=== PATIENT | female | born 1980 | race Caucasian/White ===

== ENCOUNTER 2020-04-18 19:43 | Inpatient (IN) | payer MEDICAID ==
[~2020-04-18] VITALS: Ht 165.1 cm; Wt 111.1 kg
[2020-04-18 21:31] LABS: CLARITY URINE CLOUDY (CLEAR); COLOR URINE YELLOW (YELLOW); KETONES URINE NEGATIVE (NEGATIVE); LEUKOCYTE ESTERASE URINE 3+ (NEGATIVE); NITRITE URINE NEGATIVE (NEGATIVE); OCCULT BLOOD URINE NEGATIVE (NEGATIVE); PH URINE 6.5 (4.5-8.0); PROTEIN URINE NEGATIVE (NEGATIVE); SPECIFIC GRAVITY URINE 1.009 (1.005-1.030)
[2020-04-18] MEDS: LACTATED RINGERS 1,000 ML IV SCH (21:45)
[2020-04-19] MEDS: AMPICILLIN 2,000 MG in SODIUM CHLORIDE 0.9% 100 ML IV SCH ×5 (00:11→23:44)
[2020-04-19] MEDS: LACTATED RINGERS 1,000 ML IV SCH ×3 (00:12→15:14)
[2020-04-19] MEDS ORDERED: RHO(D) IMMUNE GLOBULIN 300 MCG/SYR IM SCH (08:45)
[2020-04-19 10:26] LABS: BASOPHILS % 0.4 % (0.0-2.0); HEMOGLOBIN. 12.2 g/dL (12.0-16.0); LYMPHOCYTES % 16.6 % (20.0-50.0); MEAN CORPUSCULAR HEMOGLOBIN 32.1 pg (28.0-32.0); MEAN CORPUSCULAR VOLUME 94.8 fL (81.0-99.0); MEAN PLATELET VOLUME 7.8 fl (7.4-10.4); MONOCYTES % 4.5 % (2.0-8.0); NEUTROPHILS % 78.5 % (40.0-76.0); PLATELET 193 x1000/uL (130-400); RED BLOOD CELL COUNT 3.79 mill/uL (4.2-5.4); RED CELL DISTRIBUTION WIDTH 14.2 % (11.6-14.6)
[2020-04-19 10:43] LABS: INR 0.9; PARTIAL THROMBOPLASTIN TIME 34.3 sec (23.4-31.0); PROTHROMBIN TIME 9.8 sec (9.6-11.0)
[2020-04-19 14:34] LABS: HEPATITIS B SURFACE ANTIGEN NEGATIVE
[2020-04-19] MEDS: DEXAMETHASONE 10 MG/ML VIAL IV SCH (15:14)
[2020-04-20] MEDS: DEXAMETHASONE 10 MG/ML VIAL IV SCH ×2 (02:50→09:59)
[2020-04-20] MEDS: AMPICILLIN 2,000 MG in SODIUM CHLORIDE 0.9% 100 ML IV SCH ×4 (06:12→23:42)
[2020-04-20] MEDS: PROMETHAZINE/DEXTROMETHORPHAN 6.25-15MG/5ML BOTTLE 120ML PO PRN ×2 (10:01→14:37)
[2020-04-20 12:41] LABS: CLARITY URINE CLEAR (CLEAR); COLOR URINE YELLOW (YELLOW); KETONES URINE 2+ (NEGATIVE); LEUKOCYTE ESTERASE URINE 2+ (NEGATIVE); NITRITE URINE NEGATIVE (NEGATIVE); OCCULT BLOOD URINE NEGATIVE (NEGATIVE); PH URINE 7.5 (4.5-8.0); PROTEIN URINE NEGATIVE (NEGATIVE); SPECIFIC GRAVITY URINE 1.013 (1.005-1.030)
[2020-04-20 13:33] LABS: CANNABINOID URINE SCREEN NEGATIVE (NEGATIVE); PHENCYCLIDINE URINE SCREEN NEGATIVE (NEGATIVE)
[2020-04-20 13:34] LABS: *AMPHETAMINES SCREEN URINE NEGATIVE (NEGATIVE); *BARBITURATES SCREEN URINE NEGATIVE (NEGATIVE); *BENZODIAZEPINES SCREEN URINE NEGATIVE (NEGATIVE); *COCAINE SCREEN URINE NEGATIVE (NEGATIVE); METHADONE URINE SCREEN NEGATIVE (NEGATIVE); OPIATES URINE SCREEN NEGATIVE (NEGATIVE)
[2020-04-20] MEDS: BENZONATATE 100MG CAPSULE PO PRN (17:38)
[2020-04-20] MEDS: LACTATED RINGERS 1,000 ML IV SCH (18:00)
[2020-04-21] MEDS ORDERED: ENOXAPARIN 30MG/0.3ML SYR SUBCUT SCH
[2020-04-21] MEDS: LACTATED RINGERS 1,000 ML IV SCH ×3 (04:00→21:44)
[2020-04-21] MEDS: AMPICILLIN 2,000 MG in SODIUM CHLORIDE 0.9% 100 ML IV SCH ×4 (05:55→23:58)
[2020-04-21] MEDS: PROMETHAZINE/DEXTROMETHORPHAN 6.25-15MG/5ML BOTTLE 120ML PO PRN ×2 (10:31→18:11)
[2020-04-21] MEDS: DEXAMETHASONE 4MG TABLET PO SCH (10:33)
[2020-04-21 19:59] LABS: BG CARBOXYHEMOGLOBIN 0.2 % (0.5-1.5); BG HCO3 ACT 23.2 mmol/L (22.0-26.0); BG METHEMOGLOBIN 0.3 % (0.0-1.5); BG OXYHEMOGLOBIN 98.5 % (94.0-97.0); BG PCO2 34.2 mmHg (35.0-45.0); BG PO2 153.5 mmHg (75.0-100.0); BG TOTAL HEMOGLOBIN 15.7 g/dL (12.0-18.0); BG VENT MODE MASK - NRB
[2020-04-21] MEDS ORDERED: IOHEXOL-350 100 ML BOTTLE ONE (23:36)
[2020-04-21 23:44] LABS: BASOPHILS % 0.4 % (0.0-2.0); EOSINOPHILS % 0.1 % (0.0-5.0); HEMATOCRIT. 40.4 % (36.0-48.0); HEMOGLOBIN. 13.4 g/dL (12.0-16.0); LYMPHOCYTES % 8.9 % (20.0-50.0); MEAN CORPUSCULAR HEMOGLOBIN 31.5 pg (28.0-32.0); MEAN CORPUSCULAR VOLUME 94.8 fL (81.0-99.0); MONOCYTES % 3.5 % (2.0-8.0); NEUTROPHILS % 87.1 % (40.0-76.0); PLATELET 228 x1000/uL (130-400); RED BLOOD CELL COUNT 4.26 mill/uL (4.2-5.4); RED CELL DISTRIBUTION WIDTH 14.3 % (11.6-14.6)
[2020-04-22] MEDS: AMPICILLIN 2,000 MG in SODIUM CHLORIDE 0.9% 100 ML IV SCH ×3 (06:08→18:00)
[2020-04-22] MEDS: DEXAMETHASONE 4MG TABLET PO SCH (09:58)
[2020-04-22 11:05] LABS: BASOPHILS % 0.2 % (0.0-2.0); EOSINOPHILS % 0.1 % (0.0-5.0); HEMATOCRIT. 38.4 % (36.0-48.0); HEMOGLOBIN. 12.7 g/dL (12.0-16.0); LYMPHOCYTES % 9.9 % (20.0-50.0); MEAN CORPUSCULAR HEMOGLOBIN 31.5 pg (28.0-32.0); MEAN CORPUSCULAR VOLUME 95.2 fL (81.0-99.0); MEAN PLATELET VOLUME 7.6 fl (7.4-10.4); MONOCYTES % 4.4 % (2.0-8.0); NEUTROPHILS % 85.4 % (40.0-76.0); PLATELET 225 x1000/uL (130-400); RED BLOOD CELL COUNT 4.03 mill/uL (4.2-5.4); RED CELL DISTRIBUTION WIDTH 14.5 % (11.6-14.6)
[2020-04-22 11:20] LABS: CHLORIDE 104 mEq/L (98-107)
[2020-04-22 11:21] LABS: CHLORIDE 104 mEq/L (98-107)
[2020-04-22 11:55] LABS: INR 0.9; PARTIAL THROMBOPLASTIN TIME 32.6 sec (23.4-31.0); PROTHROMBIN TIME 9.8 sec (9.6-11.0)
[2020-04-22] MEDS: LACTATED RINGERS 1,000 ML IV SCH ×2 (12:54→23:25)
[2020-04-22] MEDS: PROMETHAZINE/DEXTROMETHORPHAN 6.25-15MG/5ML BOTTLE 120ML PO PRN (12:56)
[2020-04-22] MEDS ORDERED: DEXT 5%/LR + PITOCIN 20UNITS/L 1,000 ML IV SCH ×2 (14:45→16:45)
[2020-04-22 16:18] LABS: BG BASE EXCESS -1.5 mmol/L (-2.0-2.0); BG CARBOXYHEMOGLOBIN 0.3 % (0.5-1.5); BG DEOXYHEMOGLOBIN 0.8 % (0.0-5.0); BG FRACTION INSPIRED OXYGEN 100; BG HCO3 ACT 19.2 mmol/L (22.0-26.0); BG METHEMOGLOBIN 0.3 % (0.0-1.5); BG OXYGEN SATURATION 99.2 % (92.0-98.5); BG OXYHEMOGLOBIN 98.6 % (94.0-97.0); BG PCO2 23.2 mmHg (35.0-45.0); BG PH 7.536 (7.350-7.450); BG SAMPLE SITE RIGHT RADIAL; BG VENT MODE MASK - NRB
[2020-04-22] MEDS ORDERED: BUTORPHANOL TARTRATE 2 MG/ML VIAL IM PRN (19:45)
[2020-04-22] MEDS ORDERED: ROPIVACAINE HCL/PF EPIDURAL 200 ML EPI SCH (23:45)
[2020-04-23] MEDS ORDERED: FENTANYL CITRATE/PF 50MCG/ML 2ML VIAL ONE (00:53)
[2020-04-23] MEDS ORDERED: BUPIVACAINE HCL/PF 0.25% (2.5MG/ML) 10ML ONE (00:54)
[2020-04-23] MEDS: AMPICILLIN 2,000 MG in SODIUM CHLORIDE 0.9% 100 ML IV SCH (01:13)
[2020-04-23] MEDS ORDERED: METHYLERGONOVINE MALEATE 0.2 MG/ML IM ONE (04:45)
[2020-04-23] MEDS ORDERED: CARBOPROST TROMETHAMINE 250 MCG/ML AMPUL IM ONE (04:45)
[2020-04-23 06:00] VITALS: BP 101/70
[2020-04-23] MEDS ORDERED: GLYCERIN/WITCH HAZEL LEAF MEDICATED PAD TOP PRN (06:15)
[2020-04-23] MEDS ORDERED: BENZOCAINE/LANOLIN/ALOE VERA SPRAY TOP PRN (06:15)
[2020-04-23] MEDS ORDERED: BISACODYL 10MG SUPP PR PRN (06:15)
[2020-04-23] MEDS ORDERED: METHYLERGONOVINE MALEATE 0.2 MG/ML IM PRN (06:15)
[2020-04-23] MEDS ORDERED: ACETAMINOPHEN WITH CODEINE 300/30MG TABLET PO PRN ×2 (06:15)
[2020-04-23] MEDS ORDERED: OXYTOCIN 10 UNITS/ML 1ML ONE (06:15)
[2020-04-23] MEDS ORDERED: LANOLIN OINT 7GM TUBE TOP PRN (06:15)
[2020-04-23] MEDS ORDERED: DEXT 5%/LR + PITOCIN 20UNITS/L 1,000 ML IV SCH (06:15)
[2020-04-23 09:00] VITALS: BP 110/74
[2020-04-23] MEDS ORDERED: IPRATROPIUM BROMIDE (0.02%) 0.5MG/2.5ML NEB HHN SCH (09:00)
[2020-04-23] MEDS ORDERED: ALBUTEROL 6.7GM HFA INHALER ORI PRN (11:30)
[2020-04-23] MEDS: PRENATAL VIT/FE FUMARATE/FA TABLET PO SCH (11:53)
[2020-04-23] MEDS: SIMETHICONE 80MG TABLET CHEW PO SCH ×3 (11:54→20:57)
[2020-04-23] MEDS: MAGNESIUM/ALUMINUM HYDROXIDE/SIMETHICONE 30ML UDC PO SCH ×3 (11:54→20:56)
[2020-04-23] MEDS: DEXAMETHASONE 6MG TABLET PO SCH (11:54)
[2020-04-23] MEDS: LACTATED RINGERS 1,000 ML IV SCH (11:56)
[2020-04-23] MEDS ORDERED: ALBUTEROL (0.083%) 2.5MG/3ML NEB HHN SCH (12:00)
[2020-04-23 13:25] VITALS: BP 110/56
[2020-04-23] MEDS ORDERED: ALPRAZOLAM 0.5 MG TABLET PO PRN (17:13)
[2020-04-23] MEDS ORDERED: LORAZEPAM 0.5MG TABLET PO PRN (17:30)
[2020-04-23 20:00] VITALS: BP 100/80
[2020-04-23] MEDS: DOCUSATE SODIUM 100MG CAPSULE PO SCH (20:57)
[2020-04-24] VITALS (9 sets, daily range): BP systolic 87–101; BP diastolic 54–70
[2020-04-24] MEDS: SIMETHICONE 80MG TABLET CHEW PO SCH ×4 (09:36→21:00)
[2020-04-24] MEDS: PRENATAL VIT/FE FUMARATE/FA TABLET PO SCH (09:36)
[2020-04-24] MEDS: DEXAMETHASONE 6MG TABLET PO SCH (09:37)
[2020-04-24] MEDS: MAGNESIUM/ALUMINUM HYDROXIDE/SIMETHICONE 30ML UDC PO SCH ×4 (09:46→21:00)
[2020-04-24] MEDS: DOCUSATE SODIUM 100MG CAPSULE PO SCH (21:00)
[2020-04-25] VITALS: BP 113/70
[2020-04-25] MEDS: LACTATED RINGERS 1,000 ML IV SCH ×4 (00:51→23:45)
[2020-04-25] MEDS: BENZONATATE 100MG CAPSULE PO PRN (01:09)
[2020-04-25 04:00] VITALS: BP 90/57
[2020-04-25 06:23] LABS: CHLORIDE 108 mEq/L (98-107)
[2020-04-25 06:28] LABS: BASOPHILS % 0.2 % (0.0-2.0); MEAN CORPUSCULAR HEMOGLOBIN 32.1 pg (28.0-32.0); MEAN CORPUSCULAR VOLUME 94.1 fL (81.0-99.0); MEAN PLATELET VOLUME 7.5 fl (7.4-10.4); MONOCYTES % 4.2 % (2.0-8.0); NEUTROPHILS % 87.6 % (40.0-76.0); PLATELET 314 x1000/uL (130-400); RED BLOOD CELL COUNT 3.17 mill/uL (4.2-5.4); RED CELL DISTRIBUTION WIDTH 13.9 % (11.6-14.6)
[2020-04-25 06:53] LABS: HEMATOCRIT. 29.8 % (36.0-48.0); HEMOGLOBIN. 10.2 g/dL (12.0-16.0)
[2020-04-25 08:00] VITALS: BP 96/52
[2020-04-25] MEDS: MAGNESIUM/ALUMINUM HYDROXIDE/SIMETHICONE 30ML UDC PO SCH ×4 (09:03→20:47)
[2020-04-25] MEDS: PRENATAL VIT/FE FUMARATE/FA TABLET PO SCH (09:04)
[2020-04-25] MEDS: DEXAMETHASONE 6MG TABLET PO SCH (09:04)
[2020-04-25] MEDS: SIMETHICONE 80MG TABLET CHEW PO SCH ×4 (09:04→20:47)
[2020-04-25 12:00] VITALS: BP_SYST 95; BP_SYST 98; BP_DIAS 68
[2020-04-25] MEDS: ALBUTEROL 6.7GM HFA INHALER ORI SCH ×3 (13:14→23:43)
[2020-04-25] MEDS: GUAIFENESIN/DM 600MG/30MG ER TAB 12HR PO SCH ×2 (13:14→20:47)
[2020-04-25 16:00] VITALS: BP 101/70
[2020-04-25 20:00] VITALS: BP 95/58
[2020-04-25] MEDS: DOCUSATE SODIUM 100MG CAPSULE PO SCH (20:47)
[2020-04-26] VITALS: BP_SYST 93; BP_DIAS 58; BP_DIAS 59
[2020-04-26 04:00] VITALS: BP 106/63
[2020-04-26] MEDS: ALBUTEROL 6.7GM HFA INHALER ORI SCH ×3 (05:43→18:27)
[2020-04-26] MEDS: LACTATED RINGERS 1,000 ML IV SCH ×3 (06:25→19:45)
[2020-04-26 08:00] VITALS: BP 92/56
[2020-04-26] MEDS: MAGNESIUM/ALUMINUM HYDROXIDE/SIMETHICONE 30ML UDC PO SCH ×4 (09:02→21:15)
[2020-04-26] MEDS: PRENATAL VIT/FE FUMARATE/FA TABLET PO SCH (09:02)
[2020-04-26] MEDS: SIMETHICONE 80MG TABLET CHEW PO SCH ×4 (09:02→21:14)
[2020-04-26] MEDS: DEXAMETHASONE 6MG TABLET PO SCH (09:02)
[2020-04-26] MEDS: GUAIFENESIN/DM 600MG/30MG ER TAB 12HR PO SCH ×2 (10:11→21:14)
[2020-04-26 12:00] VITALS: BP 95/66
[2020-04-26 16:00] VITALS: BP 95/49
[2020-04-26 20:00] VITALS: BP 101/64
[2020-04-26] MEDS: DOCUSATE SODIUM 100MG CAPSULE PO SCH (21:14)
[2020-04-27] VITALS: BP 96/70
[2020-04-27] MEDS: LACTATED RINGERS 1,000 ML IV SCH ×2 (02:25→09:05)
[2020-04-27 04:00] VITALS: BP 107/74
[2020-04-27] MEDS: ALBUTEROL 6.7GM HFA INHALER ORI SCH ×3 (07:30→19:54)
[2020-04-27] MEDS: GUAIFENESIN/DM 600MG/30MG ER TAB 12HR PO SCH ×2 (09:00→20:23)
[2020-04-27] MEDS: PRENATAL VIT/FE FUMARATE/FA TABLET PO SCH (10:01)
[2020-04-27] MEDS: DEXAMETHASONE 6MG TABLET PO SCH (10:01)
[2020-04-27] MEDS: SIMETHICONE 80MG TABLET CHEW PO SCH ×4 (10:01→21:00)
[2020-04-27] MEDS: MAGNESIUM/ALUMINUM HYDROXIDE/SIMETHICONE 30ML UDC PO SCH ×4 (10:02→21:00)
[2020-04-27 20:00] VITALS: BP 105/64
[2020-04-27] MEDS: DOCUSATE SODIUM 100MG CAPSULE PO SCH (21:00)
[2020-04-28 04:00] VITALS: BP 135/71
[2020-04-28] MEDS: ALBUTEROL 6.7GM HFA INHALER ORI SCH ×4 (09:26→17:33)
[2020-04-28] MEDS: DEXAMETHASONE 6MG TABLET PO SCH (09:27)
[2020-04-28] MEDS: MAGNESIUM/ALUMINUM HYDROXIDE/SIMETHICONE 30ML UDC PO SCH ×4 (09:27→21:25)
[2020-04-28] MEDS: SIMETHICONE 80MG TABLET CHEW PO SCH ×4 (09:28→21:26)
[2020-04-28] MEDS: PRENATAL VIT/FE FUMARATE/FA TABLET PO SCH (09:28)
[2020-04-28] MEDS: IBUPROFEN 400MG TABLET PO PRN (09:42)
[2020-04-28 12:00] VITALS: BP 115/68
[2020-04-28 16:00] VITALS: BP 96/58
[2020-04-28] MEDS: GUAIFENESIN/DM 600MG/30MG ER TAB 12HR PO SCH ×2 (17:30→21:26)
[2020-04-28] MEDS: DOCUSATE SODIUM 100MG CAPSULE PO SCH (21:26)
[2020-04-29] VITALS: BP 102/66
[2020-04-29] MEDS: ALBUTEROL 6.7GM HFA INHALER ORI SCH ×5 (00:59→23:26)
[2020-04-29 08:00] VITALS: BP 81/54
[2020-04-29] MEDS: PRENATAL VIT/FE FUMARATE/FA TABLET PO SCH (09:00)
[2020-04-29] MEDS: MAGNESIUM/ALUMINUM HYDROXIDE/SIMETHICONE 30ML UDC PO SCH ×4 (09:00→23:25)
[2020-04-29] MEDS: SIMETHICONE 80MG TABLET CHEW PO SCH ×4 (09:00→23:25)
[2020-04-29] MEDS: GUAIFENESIN/DM 600MG/30MG ER TAB 12HR PO SCH ×2 (09:00→23:25)
[2020-04-29 12:00] VITALS: BP 94/63
[2020-04-29 12:02] LABS: BG BASE EXCESS 2.5 mmol/L (-2.0-2.0); BG CARBOXYHEMOGLOBIN 0.3 % (0.5-1.5); BG DEOXYHEMOGLOBIN 9.4 % (0.0-5.0); BG HCO3 ACT 25.9 mmol/L (22.0-26.0); BG METHEMOGLOBIN 0.2 % (0.0-1.5); BG OXYGEN SATURATION 90.6 % (92.0-98.5); BG OXYHEMOGLOBIN 90.1 % (94.0-97.0); BG PCO2 35.7 mmHg (35.0-45.0); BG PH 7.478 (7.350-7.450); BG PO2 58.3 mmHg (75.0-100.0); BG SAMPLE SITE RIGHT RADIAL; BG TOTAL HEMOGLOBIN 12.8 g/dL (12.0-18.0); BG VENT MODE NASAL CANNULA
[2020-04-29 16:00] VITALS: BP 105/72
[2020-04-29 20:00] VITALS: BP 100/63
[2020-04-29] MEDS: DOCUSATE SODIUM 100MG CAPSULE PO SCH (23:25)
[2020-04-29] MEDS: IBUPROFEN 400MG TABLET PO PRN (23:32)
[2020-04-30 04:00] VITALS: BP 95/64
[2020-04-30] MEDS: ALBUTEROL 6.7GM HFA INHALER ORI SCH ×3 (05:51→17:22)
[2020-04-30] MEDS: SIMETHICONE 80MG TABLET CHEW PO SCH ×4 (08:12→21:49)
[2020-04-30] MEDS: PRENATAL VIT/FE FUMARATE/FA TABLET PO SCH (08:12)
[2020-04-30] MEDS: MAGNESIUM/ALUMINUM HYDROXIDE/SIMETHICONE 30ML UDC PO SCH ×4 (08:12→21:48)
[2020-04-30] MEDS: GUAIFENESIN/DM 600MG/30MG ER TAB 12HR PO SCH ×2 (08:13→21:49)
[2020-04-30 09:00] VITALS: BP 89/58
[2020-04-30] MEDS: IBUPROFEN 400MG TABLET PO PRN ×2 (09:23→17:57)
[2020-04-30] MEDS ORDERED: LIDOCAINE HCL/PF 1% 2ML VIAL ONE (11:00)
[2020-04-30 12:40] LABS: BG BASE EXCESS 2.5 mmol/L (-2.0-2.0); BG DEOXYHEMOGLOBIN 8.9 % (0.0-5.0); BG FRACTION INSPIRED OXYGEN 21; BG HCO3 ACT 25.3 mmol/L (22.0-26.0); BG OXYGEN SATURATION 91.1 % (92.0-98.5); BG OXYHEMOGLOBIN 91.1 % (94.0-97.0); BG PCO2 33.4 mmHg (35.0-45.0); BG PH 7.497 (7.350-7.450); BG PO2 58.9 mmHg (75.0-100.0); BG SAMPLE SITE RIGHT BRACHIAL; BG VENT MODE ROOM AIR
[2020-04-30 14:00] VITALS: BP 95/64
[2020-04-30 20:00] VITALS: BP 105/63
[2020-04-30] MEDS: DOCUSATE SODIUM 100MG CAPSULE PO SCH (21:49)
[2020-05-01] VITALS: BP 97/65
[2020-05-01] MEDS: ALBUTEROL 6.7GM HFA INHALER ORI SCH ×3 (00:37→08:30)
[2020-05-01] MEDS: IBUPROFEN 400MG TABLET PO PRN (03:45)
[2020-05-01 04:00] VITALS: BP 95/56
[2020-05-01] MEDS: GUAIFENESIN/DM 600MG/30MG ER TAB 12HR PO SCH (08:29)
[2020-05-01] MEDS: MAGNESIUM/ALUMINUM HYDROXIDE/SIMETHICONE 30ML UDC PO SCH ×2 (08:29→12:40)
[2020-05-01] MEDS: PRENATAL VIT/FE FUMARATE/FA TABLET PO SCH (08:29)
[2020-05-01] MEDS: SIMETHICONE 80MG TABLET CHEW PO SCH ×2 (08:30→13:10)
[2020-05-01] MEDS ORDERED: ALBU90AE INH (10:46)
[2020-05-01 14:05] VITALS: BP 103/68
== END 2020-05-01 14:55 | disposition home or self-care (01) | DRG 560 ==
LOC: 8 EST LDRP 19:43 → OBSVTOIN 19:43 → 8 EST LDRP 04-22 15:00 → 8WST 04-23 13:45
PROVIDERS: ADMIT Obstetrics & Gynecology; ATTEND Obstetrics & Gynecology
PROC: 10E0XZZ Delivery of Products of Conception, External Approach (ICD-10-PCS; principal; 2020-04-23)
PROC: 3E033VJ Introduction of Other Hormone into Peripheral Vein, Percutaneous Approach (ICD-10-PCS; 2020-04-23)
PROC: 3E0R3BZ Introduction of Anesthetic Agent into Spinal Canal, Percutaneous Approach (ICD-10-PCS; 2020-04-23)
PROC: 00HU33Z Insertion of Infusion Device into Spinal Canal, Percutaneous Approach (ICD-10-PCS; 2020-04-23)
DX: O98.52 Other viral diseases complicating childbirth (principal); O99.12 Other diseases of the blood and blood-forming organs and certain disorders involving the immune mechanism complicating childbirth; O99.52 Diseases of the respiratory system complicating childbirth; O69.81X0 Labor and delivery complicated by cord around neck, without compression, not applicable or unspecified; O99.344 Other mental disorders complicating childbirth; A41.89 Other specified sepsis; U07.1 COVID-19; O41.03X0 Oligohydramnios, third trimester, not applicable or unspecified; D72.810 Lymphocytopenia; J96.01 Acute respiratory failure with hypoxia; O75.3 Other infection during labor; J12.82 Pneumonia due to coronavirus disease 2019; F41.9 Anxiety disorder, unspecified; Z3A.36 36 weeks gestation of pregnancy; Z37.0 Single live birth; O72.1 Other immediate postpartum hemorrhage
CPT/HCPCS: 36415; 36600; 71045; 71275; 76805; 76815; 76818; 80053; 80305; 81003; 82375; 82728; 82805; 83605; 83615; 84145; 84550; 85025; 85379; 85384; 86140; 86592; 86703; 86762; 86850; 86900; 87106; 87340; 93005; 99281; C1893; J0290; J0595; J1100; J1650; J2210; J2590; J2795; J3010; J3490; J7050; J7120; J8540; Q9967; U0003